=== PATIENT | female | born 1995 | race African-American/Black ===

== ENCOUNTER 2023-11-25 10:03 | Emergency (ER) | payer MEDICARE, MEDICAID ==
[~2023-11-25] VITALS: Ht 165.1 cm; Wt 74.1 kg
[2023-11-25 10:04] VITALS: TEMP 98.2
[2023-11-25 12:35] VITALS: BP 128/76; PULSE 85; RESP 16
[2023-11-25] MEDS ORDERED: PERCT PO (12:40)
== END 2023-11-25 12:36 | disposition home or self-care (01) ==
LOC: EMS 10:05
DX: S52.602A Unspecified fracture of lower end of left ulna, initial encounter for closed fracture (principal); X58.XXXA Exposure to other specified factors, initial encounter; Y93.89 Activity, other specified; Y92.89 Other specified places as the place of occurrence of the external cause; Y99.8 Other external cause status
CPT/HCPCS: 99283

== ENCOUNTER 2024-01-24 17:06 | Emergency (ER) | payer MEDICARE, MEDICAID ==
[~2024-01-24] VITALS: Ht 165.1 cm; Wt 84.1 kg
[~2024-01-24 17:06] MED LIST: PERCT PO
[2024-01-24 17:24] VITALS: TEMP 99.2
[2024-01-24 17:32] LABS: COVID AG,FIA SOURCE NASAL SWAB
[2024-01-24 17:38] LABS: APPEARANCE,URINE HAZY (CLEAR); BILIRUBIN,URINE NEGATIVE (NEGATIVE); COLOR,URINE YELLOW (YELLOW); GLUCOSE, URINE (UA) NEGATIVE (NEGATIVE); KETONES,URINE 40-60 mg/dL (NEGATIVE); LEUKOCYTE ESTERASE ,URINE TRACE (NEGATIVE); NITRATE,URINE NEGATIVE (NEGATIVE); OCCULT BLOOD,URINE LARGE (NEGATIVE); PROTEIN,URINE 100-200,SEE CONFIRM mg/dL (NEGATIVE); SPECIFIC GRAVITIY, URINE 1.032 (1.003-1.030)
[2024-01-24 17:48] LABS: BACTERIA,URINE Few /HPF (None Seen); RBC,URINE 51-100 /HPF (0-2); SQUAMOUS EPITHELIAL CELL,UR Few /LPF (None Seen); SULFOSALICYLIC ACID,URINE 2+ (Negative)
[2024-01-24 18:00] LABS: INFLUENZA TYPE A NEGATIVE FOR TYPE A (NEGATIVE); INFLUENZA TYPE B NEGATIVE FOR TYPE B (NEGATIVE); SARS-COV2 (COVID) ANTIGEN,FIA Negative (Negative)
[2024-01-24 18:49] LABS: BASOPHILS % (AUTO) 2.7 % (0.0-2.0); EOSINOPHILS % (AUTO) 0.3 % (1.0-6.0); HEMATOCRIT 34.9 % (36-46); LYMPHOCYTES # (AUTO) 1.2 K/uL (1.0-4.8); LYMPHOCYTES % (AUTO) 14.5 % (22.0-44.0); MEAN CORPUSCULAR HEMOGLOBIN 22.8 pg (26.0-34.0); MEAN CORPUSCULAR HGB CONC 34.5 G/dL (31.0-37.0); MEAN CORPUSCULAR VOLUME 66 fL (80-100); MONOCYTES # (AUTO) 0.6 K/uL (0.1-1.0); MONOCYTES % (AUTO) 7.8 % (2.0-9.0); NEUTROPHILS # (AUTO) 6.2 K/uL (1.8-7.7); NEUTROPHILS % (AUTO) 74.7 % (40.0-70.0); PLATELET COUNT (AUTO) 276 K/uL (150-450); RED BLOOD CELL COUNT(AUTO) 5.28 MIL/uL (4.00-5.20); RED CELL DISTRIBUTION WIDTH 15.4 % (11.5-14.5); WHITE BLOOD COUNT (AUTO) 8.3 K/uL (4.5-11.0)
[2024-01-24 18:50] LABS: ANION GAP 12 mmol/L (8-16); CALCIUM, TOTAL 9.5 mg/dL (8.8-10.5); CARBON DIOXIDE 26 mmol/L (22-29); CHLORIDE 101 mmol/L (98-107); CREATININE 0.81 mg/dL (0.60-1.30); GLOMERULAR FILTR. RATE CALC > 60 mL/min (>60); GLUCOSE,RANDOM 85 mg/dL (70-110); SODIUM SERUM 139 mmol/L (136-145); UREA NITROGEN, BLOOD 11 mg/dL (7-18)
[2024-01-24 18:55] LABS: ALANINE AMINOTRANSFERASE 18 U/L (12-78); ALKALINE PHOSPHATASE 96 U/L (46-116); ASPARTATE AMINOTRANSFERASE 20 U/L (15-37)
[2024-01-24 19:07] LABS: RBC MORPHOLOGY COMMENT ABNORMAL RBC MORPH
[2024-01-24] MEDS ORDERED: SODIUM CHLORIDE 0.9% 100 ML ONE (19:32)
[2024-01-24] MEDS ORDERED: IOHEXOL 350 MG/ML 100 ML VIAL ONE (19:32)
[2024-01-24] MEDS: ACETAMINOPHEN 500 MG TABLET PO ONE (19:38)
[2024-01-24] MEDS: POTASSIUM CHLORIDE 20 MEQ ER TABLET PO ONE (19:38)
[2024-01-24] MEDS: ONDANSETRON HCL 4 MG/2 ML VIAL IVP ONE (19:38)
[2024-01-24] MEDS: SODIUM CHLORIDE 0.9% 1,000 ML IV ONE (19:41)
[2024-01-24 19:56] LABS: ALCOHOL, BLOOD (SERUM) < 3 mg/dL (0-10)
[2024-01-24 20:40] VITALS: BP 146/61; PULSE 81; RESP 14
[2024-01-24] MEDS: LIDOCAINE 5% TRANSDERMAL PATCH TD ONE (21:40)
[2024-01-24] MEDS ORDERED: ACET-3385 PO (21:40)
[2024-01-24] MEDS: LORATADINE 10 MG TABLET PO ONE (21:40)
[2024-01-24] MEDS ORDERED: LIDO700A15 TP (21:40)
[2024-01-24] MEDS ORDERED: CLOT15CR29 TP (22:05)
[2024-01-24] MEDS ORDERED: CEPH-558 PO (22:24)
== END 2024-01-24 22:43 | disposition home or self-care (01) ==
LOC: EMS 17:08
DX: R31.9 Hematuria, unspecified (principal); M54.50 Low back pain, unspecified; R30.0 Dysuria; Z79.899 Other long term (current) drug therapy; Z20.822 Contact with and (suspected) exposure to COVID-19
CPT/HCPCS: 99285; 74177; 96374; 96361; 87426; 80053; 81001; 84703; 85025; 87804; 36415; G0480; J2405; Q9967; J7030; J7050; 81002